=== PATIENT | male | born 2000 | race Caucasian/White ===

== ENCOUNTER 2021-09-10 22:43 | Inpatient (IN) ==
[2021-09-10] MEDS ORDERED: MULTI-VITAMIN INFUSION 10 ML, THIAMINE HCL 100 MG, FOLIC ACID 1 MG in SODIUM CHLORIDE 0... IV ONE (23:11)
[2021-09-10] MEDS ORDERED: LORazepam 2 MG/1 ML VIAL IV STA (23:11)
[2021-09-10 23:42] LABS: Basophils # (auto) 0.02 K/uL (0-0.2); Basophils % (auto) 0.2 %; Eosinophils % (auto) 1.2 %; Hematocrit (blood only) 43.9 % (42-52); Immature Granulocytes # (auto) 0.01 K/uL (0.00-0.02); Immature Granulocytes % (auto) 0.1 %; Lymphocytes # (auto) 3.66 K/uL (1.2-3.4); Lymphocytes % (auto) 45.6 %; Mean Corpuscular Hemoglobin 32.9 pg (25-34); Mean Corpuscular Hgb Conc 34.2 g/dL (32-36); Mean Corpuscular Volume 96.3 fL (80-100); Mean Platelet Volume 10.6 fL (7.4-10.4); Monocytes # (auto) 0.94 K/uL (0.11-0.59); Monocytes % (auto) 11.7 %; Neutrophils # (auto) 3.29 K/uL (1.4-6.5); Neutrophils % (auto) 41.2 %; Platelet Count 216 K/uL (130-400); RDW Coefficient of Variation 12.6 % (11.5-14.5); RDW Standard Deviation 43.9 fL (36.4-46.3); Red Blood Count 4.56 M/uL (4.7-6.1); White Blood Count 8.02 K/uL (4.8-10.8)
[2021-09-11] LABS: Appearance Urine Clear (Clear); Bilirubin Urine Negative (Negative); Blood Urine Negative (Negative); Color Urine Yellow; Glucose Urine UA Negative (Negative); Ketones Urine Negative (Negative); Leukocyte Esterase Urine Negative (Negative); Nitrite Urine Negative (Negative); Protein Urine Negative (Negative); Specific Gravity Urine 1.002 (1.000-1.030); Urobilinogen Urine Negative (Negative)
[2021-09-11 00:05] LABS: Partial Thromboplastin Ratio 0.9; Partial Thromboplastin Time 25.9 Seconds (21.0-31.0); Prothrombin Time 10.7 Seconds (9.0-12.0)
[2021-09-11 00:12] LABS: Troponin I High Sensitivity 3.4 pg/ml (0-20)
[2021-09-11 00:20] LABS: Albumin Level 4.6 gm/dl (3.4-5.0); BUN Creatinine Ratio 10.1 (10-20); Bilirubin,Total 0.7 mg/dl (0.2-1.0); Calcium 9.1 mg/dl (8.5-10.1); Creatinine Clr Calc Pharmacy 122.8 ml/min; Est GFR (African American) 147.7 ml/min; Est GFR (Non-African American) 127.5 ml/min; Globulin 2.3 gm/dl (2.5-4.0); Magnesium 1.6 mg/dl (1.7-2.4); Potassium 3.3 mmol/L (3.5-5.1); Total Protein 6.9 gm/dl (6.0-8.3)
[2021-09-11] MEDS ORDERED: LORazepam 2 MG/1 ML VIAL IV STA (01:43)
[2021-09-11] MEDS ORDERED: SODIUM CHLORIDE 0.9% 1000ML 1,000 ML IV SCH ×2 (01:45→06:27)
[2021-09-11 02:00] LABS: Amphetamines+Metham, Urine Neg (Neg); Barbiturates, Urine Neg (Neg); Benzodiazepine, Urine Neg (Neg); Cocaine, Urine Neg (Neg); MDMA (Ecstacy), Urine Neg (Neg); Methadone, Urine Neg (Neg); Opiate, Urine Neg (Neg); Phencyclidine, Urine Neg (Neg)
[2021-09-11] MEDS ORDERED: GABAPENTIN 1200MG ALCOHOL WITHDRAWAL LOAD PO STA (05:22)
[2021-09-11] MEDS ORDERED: GABAPENTIN 600 MG TAB PO STA (05:27)
[2021-09-11] MEDS ORDERED: LORazepam 2 MG/1 ML VIAL IV PRN ×3 (06:27)
[2021-09-11] MEDS ORDERED: GABAPENTIN 600 MG TAB PO ONE ×2 (06:27→07:00)
[2021-09-11] MEDS ORDERED: NITROGLYCERIN SL 0.4 MG/TAB TAB SL PRN (06:27)
[2021-09-11] MEDS ORDERED: ATIVAN IV ALCOHOL WITHDRAWL IV PRN (06:27)
--- NOTE | 2021-09-11 07:14 | History and Physical Report ---
DATE OF ADMISSION: 09/10/2021. CHIEF COMPLAINT: Shaking, alcoholism. HISTORY OF PRESENT ILLNESS: This is a 21-year-old male with past medical history significant for depression, ongoing alcohol abuse, smokes marijuana daily, vapes daily. Comes here because of shakiness. The patient says he is trying to cut down on alcohol and he was also recently started on Abilify. He thought the shaking would be from the Abilify, he stopped the Abilify, but his shaking is not getting better, so he came here and he responded to Ativan. His alcohol level was 249, marijuana was positive. Magnesium 1.6, potassium 3.3. The patient is currently resting comfortably, some shakiness is there. Answering appropriately. Denies any headache. No nausea, no blurred visions, no runny nose, no sore throat, no cough, no chest pain, no shortness of breath, no nausea, no abdominal pain. Normal bowel and bladder movements. Appetite is okay. Eating and drinking okay as per the patient. He says he lives with a roommate. His girlfriend is in the room and she has connected to the mother and father, they are coming to the hospital.Spoke with parents on the phone. They agree that he told them that he has a drinking problem and trying to cut back and asking for any help after he gets discharged. ALLERGIES: No known drug allergies. MEDICATIONS: The patient is on bupropion 150 mg p.o. daily, desvenlafaxine 75 mg p.o. daily. PAST MEDICAL HISTORY: As mentioned above. PAST SURGICAL HISTORY: None. FAMILY HISTORY: Significant for mother had skin cancer. SOCIAL HISTORY: Smokes. Drinks alcohol, as per the patient 6 beers daily. Smokes marijuana daily and vapes daily. REVIEW OF SYSTEMS: As per HPI. Rest of the review of systems is negative. PHYSICAL EXAMINATION: GENERAL: The patient is thin and frail, not in acute distress. VITAL SIGNS: Temperature 36.5, pulse 77, respiratory rate 20, blood pressure 89/47, oxygen 96% on room air. HEENT: Pupils equal, round and reactive to light. Oral mucosa moist. NECK: No JVD, no neck masses. CARDIOVASCULAR: S1 and S2 heard. Regular rate and rhythm. No murmur, no gallop. RESPIRATORY SYSTEM: Normal AP diameter. No accessory muscle use. No wheezing, no crackles. ABDOMEN: Soft, bowel sounds present, nontender, no distention. CENTRAL NERVOUS SYSTEM: Cranial nerves II through XII are grossly intact, nonfocal. EXTREMITIES: No edema, no erythema. LABORATORY DATA: WBC 8, hemoglobin 15, hematocrit 43.9, platelets 216. PT 10.7, INR 1, APTT 25.9. Sodium 138, potassium 3.3, chloride 101, bicarbonate 23, BUN 8, creatinine 0.7, serum glucose 119, calcium 9.1, magnesium 1.6, total bilirubin 0.7, AST 25, ALT 16, alkaline phosphatase 50, total creatine kinase 79. Troponin I high sensitivity 3.4. Lipase 12. TSH 0.6. Urinalysis negative. Urine drug screen positive for marijuana. Ethyl alcohol 249. SARS-CoV-2 RNA negative. ASSESSMENT AND PLAN: This is a 21-year-old male who presents with shakiness, most likely secondary to alcohol withdrawal. 1. Alcohol withdrawal: Alcohol level is 250. He is trying to quit alcohol. He also smokes marijuana daily. Will do gabapentin and alcohol withdrawal protocol with IV Ativan p.r.n. Received banana bag in the ER, IV thiamine, IV folic acid. Some gentle fluids. Social service to help with outpatient rehabilitation. Consult psychiatry when the patient is stable. 2. History of depression: Continue his home medications. 3. Deep venous thrombosis prophylaxis: Heparin subcutaneously. DISPOSITION: Closely monitor in the tele floor. Level 1 full code. Expect to discharge home and follow with family doctor. Job ID: [id number] [facility]
--- NOTE | 2021-09-11 07:17 | Emergency Department Note ---
History of Present Illness General Chief complaint: Seizure Stated complaint: SEIZURE Time Seen by Provider: 09/10/21 23:01 History of Present Illness Maximum Pain Intensity: 7 This is a 21-year-old male presenting to the emergency department for evaluation of possible seizures. The patient does not have a history of seizures in the past and does have a history of mental health disease. He started Abilify about 2 weeks ago and felt like this has made him very shaky. He stopped this medication several days ago but his shakiness continues and seems to get worse. The patient admits to drinking fairly large amounts of alcohol on a daily basis the past several weeks. He is drinking not less than 8 beers a day. The patient also smokes marijuana. The patient would like to cut back on his alcohol use, and has not had a drink this evening after drinking this morning. The patient rates his discomfort a 7/10. He does not report any chest pain, chest tightness, shortness of breath, or abdominal pain. Home Medications Medication Instructions Recorded Confirmed Type bupropion HCl 150 mg 24 hr tablet, 150 mg PO DAILY 09/11/21 09/11/21 History extended release desvenlafaxine succinate 25 mg 25 mg PO DAILY 09/11/21 09/11/21 History tablet,extended release 24 hr desvenlafaxine succinate 50 mg 50 mg PO DAILY 09/11/21 09/11/21 History tablet,extended release 24 hr Allergies Allergy/AdvReac Type Severity Reaction Status Date / Time No Known Allergies Allergy Verified 03/17/19 13:41 Past Med/Surg History Medical History ADHD Alcohol use with intoxication Kidney stone Marijuana use Surgical History No significant past surgical history Family History Other No pertinent family history in first degree relatives Social History Smoking Status: Current every day smoker Tobacco Type: E-cigarettes / Vaping Hx Alcohol Use: Yes Alcohol type: beer Hx Substance Use: Yes Preferred Language: Kenyan Communication Ability: Effective Efficiency Engineer Required: No Beliefs That Will Affect Care: None Current Living Situation: Other Current Living Situation Comment: with roommate Feels Safe at Home: Yes Assistive Devices: None Review of Systems A total of 10 systems reviewed and were otherwise negative Physical Exam Vital Signs Vital Signs - 24 hr 09/10/21 22:44 09/10/21 22:55 09/10/21 23:00 Temperature 36.5 C Temperature Source Oral Pulse Rate 118 H 96 H 106 H Pulse Rate [Right Finger] Pulse Rate from SpO2 Sensor 96 H Respiratory Rate 22 18 23 Respiratory Effort / Characteristics Non-Labored Spontaneous Respiratory Depth Normal Blood Pressure 156/106 H 151/89 H Blood Pressure [Right Arm] Blood Pressure Mean 122 109 Blood Pressure Mean [Right Arm] Blood Pressure Position Sitting Pulse Oximetry 96 96 Oxygen Delivery Method Room Air Sepsis Recent Fever Within 48 Hours No Sepsis New/Unexplained Change in Mental Status N/A Sepsis Action Taken by Nursing No Action Required 09/10/21 23:15 09/10/21 23:30 09/11/21 00:00 Temperature Temperature Source Pulse Rate 86 82 Pulse Rate [Right Finger] Pulse Rate from SpO2 Sensor 86 82 Respiratory Rate 23 19 Respiratory Effort / Characteristics Respiratory Depth Blood Pressure 90/44 L Blood Pressure [Right Arm] Blood Pressure Mean 59 Blood Pressure Mean [Right Arm] Blood Pressure Position Pulse Oximetry 96 95 95 Oxygen Delivery Method Room Air Sepsis Recent Fever Within 48 Hours Sepsis New/Unexplained Change in Mental Status Sepsis Action Taken by Nursing 09/11/21 00:30 09/11/21 01:00 09/11/21 01:30 Temperature Temperature Source Pulse Rate 64 66 66 Pulse Rate [Right Finger] Pulse Rate from SpO2 Sensor 64 65 66 Respiratory Rate 16 16 21 Respiratory Effort / Characteristics Respiratory Depth Blood Pressure 87/37 L Blood Pressure [Right Arm] Blood Pressure Mean 53 Blood Pressure Mean [Right Arm] Blood Pressure Position Pulse Oximetry 94 94 95 Oxygen Delivery Method Sepsis Recent Fever Within 48 Hours Sepsis New/Unexplained Change in Mental Status Sepsis Action Taken by Nursing 09/11/21 01:44 09/11/21 01:50 09/11/21 02:00 Temperature Temperature Source Pulse Rate 150 H 81 Pulse Rate [Right Finger] 119 H Pulse Rate from SpO2 Sensor 150 H 83 Respiratory Rate 28 H 29 H 18 Respiratory Effort / Characteristics Respiratory Depth Blood Pressure 136/94 88/40 L Blood Pressure [Right Arm] 136/94 Blood Pressure Mean 108 56 Blood Pressure Mean [Right Arm] 108 Blood Pressure Position Pulse Oximetry 98 97 95 Oxygen Delivery Method Sepsis Recent Fever Within 48 Hours Sepsis New/Unexplained Change in Mental Status Sepsis Action Taken by Nursing 09/11/21 02:30 09/11/21 03:00 09/11/21 03:30 Temperature Temperature Source Pulse Rate 72 71 70 Pulse Rate [Right Finger] Pulse Rate from SpO2 Sensor 71 69 69 Respiratory Rate 19 18 19 Respiratory Effort / Characteristics Respiratory Depth Blood Pressure 85/45 L Blood Pressure [Right Arm] Blood Pressure Mean 58 Blood Pressure Mean [Right Arm] Blood Pressure Position Pulse Oximetry 94 95 95 Oxygen Delivery Method Sepsis Recent Fever Within 48 Hours Sepsis New/Unexplained Change in Mental Status Sepsis Action Taken by Nursing 09/11/21 03:49 09/11/21 04:00 09/11/21 04:30 Temperature Temperature Source Pulse Rate 97 H 70 62 Pulse Rate [Right Finger] Pulse Rate from SpO2 Sensor 91 H 73 62 Respiratory Rate 20 19 17 Respiratory Effort / Characteristics Respiratory Depth Blood Pressure 101/49 L 89/47 L Blood Pressure [Right Arm] Blood Pressure Mean 66 61 Blood Pressure Mean [Right Arm] Blood Pressure Position Pulse Oximetry 96 94 94 Oxygen Delivery Method Sepsis Recent Fever Within 48 Hours Sepsis New/Unexplained Change in Mental Status Sepsis Action Taken by Nursing 09/11/21 05:00 Temperature Temperature Source Pulse Rate 77 Pulse Rate [Right Finger] Pulse Rate from SpO2 Sensor 76 Respiratory Rate 20 Respiratory Effort / Characteristics Respiratory Depth Blood Pressure Blood Pressure [Right Arm] Blood Pressure Mean Blood Pressure Mean [Right Arm] Blood Pressure Position Pulse Oximetry 96 Oxygen Delivery Method Sepsis Recent Fever Within 48 Hours Sepsis New/Unexplained Change in Mental Status Sepsis Action Taken by Nursing VITALS: Vitals are noted on the nurse's note and reviewed by myself. Vital sig ns with tachycardia. GENERAL: Well-developed, well-nourished, white male, who is tremulous and sun ing on presentation. HEAD: Normocephalic atraumatic. MOUTH: Mucous membranes moist. Tonsils are not enlarged. Pharynx without erythema, blood, or exudate. Uvula midline. Airway patent. NECK: Supple without nuchal rigidity. No lymphadenopathy. No thyromegaly. Cervical spine is nontender. HEART: Tachycardic rate with regular rhythm LUNGS: Clear to auscultation bilaterally without wheezes, rales or rhonchi. No retractions or accessory muscle use. ABDOMEN: Positive normal bowel sounds x 4. Soft, nontender, without masses or organomegaly. No guarding or rebound tenderness. MUSCULOSKELETAL: No muscle atrophy, erythema, or edema noted. Full range of motion in all extremities. NEURO: Patient was alert and oriented to person place and time. CN II through XII grossly intact. Nonspecific shaking to the arms and legs bilateral is identified. GCS 15. Course Administered Medications Discontinued Medications Gabapentin (Gabapentin 600 Mg Tab) 600 mg PO ONE STA Stop: 09/11/21 05:28 Last Admin: 09/11/21 05:44 Dose: 600 mg Documented by: [id number] Multivitamins 10 ml/ Thiamine HCl 100 mg/ Folic Acid 1 mg/Sodium Chloride 1,011.2 mls @ 1,011.2 mls/hr IV .Q1H ONE Stop: 09/11/21 00:10 Last Infusion: 09/11/21 01:00 Dose: 0 mls/hr Documented by: [id number] Admin: 09/10/21 23:58 Dose: 1,011.2 mls/hr Documented by: [id number] Sodium Chloride (Nss 1000ml) 1,000 mls @ 999 mls/hr IV .Q1H1M NEEMA Stop: 09/11/21 02:45 Last Infusion: 09/11/21 02:51 Dose: 0 mls/hr Documented by: [id number] Admin: 09/11/21 01:50 Dose: 999 mls/hr Documented by: [id number] Lorazepam (Lorazepam 2 Mg/1 Ml Vial) 1 mg IV NOW STA Stop: 09/10/21 23:12 Last Admin: 09/10/21 23:21 Dose: 1 mg Documented by: [id number] Lorazepam (Lorazepam 2 Mg/1 Ml Vial) 1 mg IV NOW STA Stop: 09/11/21 01:44 Last Admin: 09/11/21 01:50 Dose: 1 mg Documented by: [id number] Medical Decision Making Differential Diagnosis Differential diagnosis: Etiologies such as alcohol intoxication, toxicological, infection, hypoglycemia, electrolyte abnormalities, cardiac sources, intracerebral event, neurologic, as well as others were entertained. Laboratory Data Result diagrams: 09/10/21 23:15 09/10/21 23:15 Lab Results 09/10/21 09/10/21 09/10/21 Range/Units 23:15 23:15 23:15 WBC 8.02 (4.8-10.8) K/uL RBC 4.56 L (4.7-6.1) M/uL Hgb 15.0 (14.0-18.0) g/dL Hct 43.9 (42-52) % MCV 96.3 (80-100) fL MCH 32.9 (25-34) pg MCHC 34.2 (32-36) g/dL RDW Std Deviation 43.9 (36.4-46.3) fL RDW Coeff of Corie 12.6 (11.5-14.5) % Plt Count 216 (130-400) K/uL MPV 10.6 H (7.4-10.4) fL Immature Gran % (Auto) 0.1 % Neut % (Auto) 41.2 % Lymph % (Auto) 45.6 % [place] % (Auto) 11.7 % Eos % (Auto) 1.2 % Baso % (Auto) 0.2 % Neut # (Auto) 3.29 (1.4-6.5) K/uL Lymph # (Auto) 3.66 H (1.2-3.4) K/uL [place] # (Auto) 0.94 H (0.11-0.59) K/uL Eos # (Auto) 0.10 (0-0.5) K/uL Baso # (Auto) 0.02 (0-0.2) K/uL Immature Gran # (Auto) 0.01 (0.00-0.02) K/uL PT 10.7 (9.0-12.0) Seconds INR 1.0 (0.9-1.1) APTT 25.9 (21.0-31.0) Seconds PTT Ratio 0.9 Sodium 138 (136-145) mmol/L Potassium 3.3 L (3.5-5.1) mmol/L Chloride 101 (98-107) mmol/L Carbon Dioxide 23 (21-32) mmol/L Anion Gap 14 H (3-11) BUN 8 (6-23) mg/dl Creatinine 0.79 (0.6-1.4) mg/dl Est Cr Clr Drug Dosing 122.8 ml/min Est GFR ( Amer) 147.7 ml/min Est GFR (Non-Af Amer) 127.5 ml/min BUN/Creatinine Ratio 10.1 (10-20) Glucose 119 H (70-99(Fasting)) mg/dl Calcium 9.1 (8.5-10.1) mg/dl Magnesium 1.6 L (1.7-2.4) mg/dl Total Bilirubin 0.7 (0.2-1.0) mg/dl AST 25 (13-39) U/L ALT 16 (7-52) U/L Alkaline Phosphatase 50 (34-104) U/L Total Creatine Kinase 79 (30-223) U/L Troponin I High Sens 3.4 (0-20) pg/ml Total Protein 6.9 (6.0-8.3) gm/dl Albumin 4.6 (3.4-5.0) gm/dl Globulin 2.3 L (2.5-4.0) gm/dl Albumin/Globulin Ratio 2.0 (0.9-2) Lipase 12 (11-82) U/L TSH (0.300-4.500) uIu/ml Urine Color Urine Appearance (Clear) Urine pH (4.5-7.5) Ur Specific [place] (1.000-1.030) Urine Protein (Negative) Urine Glucose (UA) (Negative) Urine Ketones (Negative) Urine Blood (Negative) Urine Nitrite (Negative) Urine Bilirubin (Negative) Urine Urobilinogen (Negative) Ur Leukocyte Esterase (Negative) Urine Opiates Screen (Neg) Ur Methadone, Qual (Neg) Urine Barbiturates (Neg) Ur Phencyclidine (PCP) (Neg) U Amphetamin/Meth Scrn (Neg) MDMA (Ecstasy) Screen (Neg) U Benzodiazepines Scrn (Neg) Ur Cocaine Metabolite (Neg) U Marijuana (THC) Screen (Neg) Ethyl Alcohol mg/dL (<10.0) mg/dl SARS-CoV-2, RNA, NAAT (NEGATIVE) 09/10/21 09/10/21 09/10/21 Range/Units 23:15 23:15 23:15 WBC (4.8-10.8) K/uL RBC (4.7-6.1) M/uL Hgb (14.0-18.0) g/dL Hct (42-52) % MCV (80-100) fL MCH (25-34) pg MCHC (32-36) g/dL RDW Std Deviation (36.4-46.3) fL RDW Coeff of Corie (11.5-14.5) % Plt Count (130-400) K/uL MPV (7.4-10.4) fL Immature Gran % (Auto) % Neut % (Auto) % Lymph % (Auto) % [place] % (Auto) % Eos % (Auto) % Baso % (Auto) % Neut # (Auto) (1.4-6.5) K/uL Lymph # (Auto) (1.2-3.4) K/uL [place] # (Auto) (0.11-0.59) K/uL Eos # (Auto) (0-0.5) K/uL Baso # (Auto) (0-0.2) K/uL Immature Gran # (Auto) (0.00-0.02) K/uL PT (9.0-12.0) Seconds INR (0.9-1.1) APTT (21.0-31.0) Seconds PTT Ratio Sodium (136-145) mmol/L Potassium (3.5-5.1) mmol/L Chloride (98-107) mmol/L Carbon Dioxide (21-32) mmol/L Anion Gap (3-11) BUN (6-23) mg/dl Creatinine (0.6-1.4) mg/dl Est Cr Clr Drug Dosing ml/min Est GFR ( Amer) ml/min Est GFR (Non-Af Amer) ml/min BUN/Creatinine Ratio (10-20) Glucose (70-99(Fasting)) mg/dl Calcium (8.5-10.1) mg/dl Magnesium (1.7-2.4) mg/dl Total Bilirubin (0.2-1.0) mg/dl AST (13-39) U/L ALT (7-52) U/L Alkaline Phosphatase (34-104) U/L Total Creatine Kinase (30-223) U/L Troponin I High Sens (0-20) pg/ml Total Protein (6.0-8.3) gm/dl Albumin (3.4-5.0) gm/dl Globulin (2.5-4.0) gm/dl Albumin/Globulin Ratio (0.9-2) Lipase (11-82) U/L TSH 0.685 (0.300-4.500) uIu/ml Urine Color Yellow Urine Appearance Clear (Clear) Urine pH 7.0 (4.5-7.5) Ur Specific [place] 1.002 (1.000-1.030) Urine Protein Negative (Negative) Urine Glucose (UA) Negative (Negative) Urine Ketones Negative (Negative) Urine Blood Negative (Negative) Urine Nitrite Negative (Negative) Urine Bilirubin Negative (Negative) Urine Urobilinogen Negative (Negative) Ur Leukocyte Esterase Negative (Negative) Urine Opiates Screen (Neg) Ur Methadone, Qual (Neg) Urine Barbiturates (Neg) Ur Phencyclidine (PCP) (Neg) U Amphetamin/Meth Scrn (Neg) MDMA (Ecstasy) Screen (Neg) U Benzodiazepines Scrn (Neg) Ur Cocaine Metabolite (Neg) U Marijuana (THC) Screen (Neg) Ethyl Alcohol mg/dL 249.8 H (<10.0) mg/dl SARS-CoV-2, RNA, NAAT (NEGATIVE) 09/10/21 09/11/21 Range/Units 23:15 03:45 WBC (4.8-10.8) K/uL RBC (4.7-6.1) M/uL Hgb (14.0-18.0) g/dL Hct (42-52) % MCV (80-100) fL MCH (25-34) pg MCHC (32-36) g/dL RDW Std Deviation (36.4-46.3) fL RDW Coeff of Corie (11.5-14.5) % Plt Count (130-400) K/uL MPV (7.4-10.4) fL Immature Gran % (Auto) % Neut % (Auto) % Lymph % (Auto) % [place] % (Auto) % Eos % (Auto) % Baso % (Auto) % Neut # (Auto) (1.4-6.5) K/uL Lymph # (Auto) (1.2-3.4) K/uL [place] # (Auto) (0.11-0.59) K/uL Eos # (Auto) (0-0.5) K/uL Baso # (Auto) (0-0.2) K/uL Immature Gran # (Auto) (0.00-0.02) K/uL PT (9.0-12.0) Seconds INR (0.9-1.1) APTT (21.0-31.0) Seconds PTT Ratio Sodium (136-145) mmol/L Potassium (3.5-5.1) mmol/L Chloride (98-107) mmol/L Carbon Dioxide (21-32) mmol/L Anion Gap (3-11) BUN (6-23) mg/dl Creatinine (0.6-1.4) mg/dl Est Cr Clr Drug Dosing ml/min Est GFR ( Amer) ml/min Est GFR (Non-Af Amer) ml/min BUN/Creatinine Ratio (10-20) Glucose (70-99(Fasting)) mg/dl Calcium (8.5-10.1) mg/dl Magnesium (1.7-2.4) mg/dl Total Bilirubin (0.2-1.0) mg/dl AST (13-39) U/L ALT (7-52) U/L Alkaline Phosphatase (34-104) U/L Total Creatine Kinase (30-223) U/L Troponin I High Sens (0-20) pg/ml Total Protein (6.0-8.3) gm/dl Albumin (3.4-5.0) gm/dl Globulin (2.5-4.0) gm/dl Albumin/Globulin Ratio (0.9-2) Lipase (11-82) U/L TSH (0.300-4.500) uIu/ml Urine Color Urine Appearance (Clear) Urine pH (4.5-7.5) Ur Specific [place] (1.000-1.030) Urine Protein (Negative) Urine Glucose (UA) (Negative) Urine Ketones (Negative) Urine Blood (Negative) Urine Nitrite (Negative) Urine Bilirubin (Negative) Urine Urobilinogen (Negative) Ur Leukocyte Esterase (Negative) Urine Opiates Screen Neg (Neg) Ur Methadone, Qual Neg (Neg) Urine Barbiturates Neg (Neg) Ur Phencyclidine (PCP) Neg (Neg) U Amphetamin/Meth Scrn Neg (Neg) MDMA (Ecstasy) Screen Neg (Neg) U Benzodiazepines Scrn Neg (Neg) Ur Cocaine Metabolite Neg (Neg) U Marijuana (THC) Screen Pos H (Neg) Ethyl Alcohol mg/dL (<10.0) mg/dl SARS-CoV-2, RNA, NAAT NEGATIVE (NEGATIVE) MDM Narrative Physical exam and history were performed. Nursing notes, EMR, and Medication List were personally reviewed. Patient appears to have significant shakiness and tachycardia on arrival. The patient is concern for seizures, however he is fully awake and is able to give me a full history. My concern is for alcohol withdrawal as he does admit to drinking a large amount. IV access was established and labs were obtained. He was given a banana bag and IV Ativan. An order was placed for continuous cardiac monitoring. The monitor shows a rate of 118 with sinus tachycardic rhythm. The patient's blood work was as above and reviewed. He does not have a significantly elevated white blood cell count, gross anemia, bandemia, or significant electrolyte imbalance. Glucose is 119. Troponin is negative. TSH is euthyroid. Urine is without evidence of infection. His alcohol is notably elevated at 249. He has marijuana positive. Despite being with an alcohol of 249 the patient did have return of his shakine ss and tachycardia after the initial dose of Ativan. The patient was given additional IV saline and a second dose of IV Ativan. The patient shakiness resolves very quickly with this and he is able to rest comfortably. He does have some episodic borderline hypotensive episodes with the Ativan. The patient was monitored for some time here in the ER, and he continues to require benzodiazepines to control his shakiness. I do suspect that he is withdrawing. The case was discussed with the on-call hospitalist who agreed to evaluate the patient here in the ER. Please see their dictation for further patient course, plan, disposition. The chart was completed utilizing [employer] Speech Voice Recognition Software. Grammatical errors, random word insertions, pronoun errors, and incomplete sente nces are an occasional consequence of this system due to software limitations, ambient noise, and hardware issues. Any formal questions or concerns about the content, text, or information contained within the body of this dictation should be directly addressed to the provider for clarification. . Impression & Plan Alcohol withdrawal, Marijuana use, Shakiness Discharge Plan Visit Data Chief Complaint: Seizure Stated Complaint: SEIZURE ED Provider: Berny Higginbotham ED Midlevel Provider: Larry Valadez Discharge Problem: Alcohol withdrawal, Marijuana use, Shakiness Patient Disposition: Admitted As Inpatient Discharge Instructions Interventions: ED Discharge Assessment Last Done: 09/11/21 06:34
[2021-09-11] MEDS: HEPARIN SOD 5,000 UNIT/0.5 ML VIAL SQ SCH ×2 (07:53→14:16)
[2021-09-11] MEDS: MAGNESIUM SULFATE / D5W 1 GM/100 ML BAG IV SCH ×2 (08:25→12:14)
[2021-09-11] MEDS ORDERED: Nursing to Pharmacy Communication SCH (08:45)
[2021-09-11] MEDS ORDERED: FOLIC ACID 1 MG in SYRINGE 9.8 ML IV SCH (09:00)
[2021-09-11] MEDS ORDERED: THIAMINE HCL 100 MG in SYRINGE 9 ML IV SCH (09:00)
[2021-09-11] MEDS ORDERED: buPROPion XL 150 MG TABCR PO SCH ×2 (09:00→15:00)
[2021-09-11] MEDS: GABAPENTIN 600 MG TAB PO SCH ×2 (12:54→19:10)
--- NOTE | 2021-09-11 14:21 | Psychiatric Consultation ---
Date of Consultation September 11, 2021 Impression / Recommendations Impression This is a 21 yo with a history of ADHD, depression,anxiety, and alcohol use admitted medically. Diagnostically consistent with alcohol use disorder as well as unspecified depression and anxiety likely a combination of substance-induced as well as MDD and MARIBEL. Shakiness could certainly be from alcohol withdrawal likely complicated by some potential akathisia or tremor from ability and dopaminergic/NE activation from Wellbutrin and Pristiq. Marijuana may also be contributing. May benefit from propranolol for anxiety and tremor if anxiety/akathisia component and if blood pressure can tolerate. At this point ri sk of harm to self and others is slightly increased due to substance use with substance use treatment being the most significant modifiable risk factor to reduce acute and chronic risk. Acute risk is low given denial of SI with no hx prior attempts but with depression, anxiety, substance use. He is not interested in inpatient psychiatric treatment at this time and does not meet involuntary criteria. They are not interested in residential treatment at this time but are agreeable to outpatient services to help with substance use and reviewed future option for medication assisted treatment if he decides he wants to try this in the future. -Psychiatric liason will confirm his next outpt psychiatric appointment at [facility] and provide resources for local substance use services (discussed [facility], he's unsure how long he is going to remain locally). -Consider propranolol 10mg BID for anxiety/tremor if blood pressure stable -Continue AWSS as well as thiamine and folic acid -Consider starting naltrexone 50mg qd for alcohol use disorder in the future -Continue Wellbutrin, ok to hold Pristiq as non-formulary unless family can bring in home medication supply; agree with discontinuation of abilify -Patient is not an imminent danger to self or others and does not meet criteria for involuntary psychiatric commitment (1) Alcohol withdrawal: (2) Alcohol use disorder, mild, abuse: (3) MDD (major depressive disorder), recurrent episode, moderate: (4) MARIBEL (generalized anxiety disorder): see above Risk Factors Assessment Male: Yes : Yes Do You Have Access To A Gun?: No Psych History Identifying Data 21 yo man with history of ADHD, depression and anxiety admitted medically for alcohol withdrawal. Psychiatry was consulted for recommendations regarding depression and alcohol use. Chief Complaint "I'm ok". History of Present Illness describes a long history of depression that fluctuates. He has an outpatient psychiatrist and therapist and recently added abilify for mood augmentation but he then developed increased shakiness/tremors. This further exacerbated his anxiety as he worried about being seen shaking while in public. Shakiness sometimes associated with anxiety sometimes without. Also within the last few weeks his alcohol use has been increasing to the point of drinking 8 beers per day over the last two weeks. No history of blackouts/DUIs/other legal consequences from this. Today endorses depressive symptoms, 18 on PHQ-9 with low mood, low energy, decreased appetite, and trouble concentrating as highest symptom burden. He denies any current nor recent thoughts of suicide and Q9 was 0 on PHQ-9. Attempted self-harm via burning his hand last week for the first time but did not like how this felt and denies any further episodes of self-harm nor any urges. He can speak to future-oriented goals and reasons to live including family and friends. Reviewed that he's been on Pristiq for the last year and Wellbutrin for last 5 years. Tremors/shakiness didn't start until abilify was added about two weeks ago and has not resolved even with stopping abilify about 3 days ago. For further history see psych liason note. Past Psychiatric History Previous Psych Admissions: once in 2014 at [facility] Do You Have Access To A Gun?: No History of Previous Suicide Attempt: No Past Medication Trials: tried SSRIs in the past Allergies Allergy/AdvReac Type Severity Reaction Status Date / Time No Known Allergies Allergy Verified 03/17/19 13:41 Home Medications Medication Instructions Recorded Confirmed Type bupropion HCl 150 mg 24 hr tablet, 150 mg PO DAILY 09/11/21 09/11/21 History extended release desvenlafaxine succinate 25 mg 25 mg PO DAILY 09/11/21 09/11/21 History tablet,extended release 24 hr desvenlafaxine succinate 50 mg 50 mg PO DAILY 09/11/21 09/11/21 History tablet,extended release 24 hr Family History depression and anxiety Substance Abuse History see HPI-alcohol use, marijuana use Personal History Living Arrangements: Apartment Childhood: Withdrew from [facility] this ster due to depression, planning to return home with family for summer and possibly return to campus for fall. Beliefs That Will Affect Care: None History of Legal Problems: none Patient History Medical History ADHD Alcohol use with intoxication Kidney stone Marijuana use Surgical History No significant past surgical history Family History Other No pertinent family history in first degree relatives Social History Smoking Status: Current every day smoker Tobacco Type: E-cigarettes / Vaping Hx Alcohol Use: Yes Alcohol type: beer Hx Substance Use: Yes Preferred Language: Russian Communication Ability: Effective Mobile Therapist Required: No Beliefs That Will Affect Care: None Current Living Situation: Other Current Living Situation Comment: with roommate Feels Safe at Home: Yes Assistive Devices: None Physical Exam Psychiatric: Orientation: alert and oriented x 3 Apperance: appropriately dressed and appropriately groomed Eye Contact: good eye contact Motor Behavior: + abnormal motor movements (a few episodes of tremulousness noted ) Speech: normal rate/rhythm/volume of speech Affect: + depressed affect Mood: + depressed mood and + anxious mood Thought Process: goal directed thought process Thought Content: reality based without delusions Suicidal Thoughts: denies suicidal thoughts Homicidal Thoughts: denies homicidal thoughts Hallucinations: no auditory hallucinations and no visual hallucinations Cognition: recent memory grossly intact, remote memory grossly intact, attention grossly intact and language grossly intact Estimated Intelligence: consistent with education level Insight: + fair insight Judgement: + fair judgement Vital Signs (Past 24 Hours): Last Vital Signs Temp 37.2 C 09/11/21 11:11 Pulse 73 09/11/21 11:11 Resp 14 09/11/21 11:11 BP 115/58 L 09/11/21 11:11 Pulse Ox 97 09/11/21 11:11 Review of Systems All systems reviewed & are unremarkable except as noted in HPI & below Results & Data (PSY) Medications Administered Gabapentin (Gabapentin 600 Mg Tab) 600 mg PO Q6H NEEMA Stop: 09/11/21 18:01 Last Admin: 09/11/21 12:54 Dose: 600 mg Documented by: [id number] Heparin Sodium (Porcine) (Heparin Sod 5,000 Unit/0.5 Ml Vial) 5,000 units SQ Q8 NEEMA Stop: 10/11/21 06:44 Last Admin: 09/11/21 14:16 Dose: Not Given Documented by: [id number] Admin: 09/11/21 07:53 Dose: 5,000 units Documented by: [id number] Thiamine HCl 100 mg/ Syringe 10 mls @ 2 mls/min IV QAM NEEMA Stop: 10/11/21 08:59 Last Admin: 09/11/21 08:21 Dose: 2 mls/min Documented by: [id number] Folic Acid 1 mg/ Syringe 10 mls @ 5 mls/min IV QAM NEEMA Stop: 10/11/21 08:59 Last Admin: 09/11/21 08:21 Dose: 5 mls/min Documented by: [id number] Sodium Chloride (Nss 1000ml) 1,000 mls @ 100 mls/hr IV .Q10H NEEMA Stop: 09/11/21 16:26 Last Infusion: 09/11/21 08:25 Dose: 100 mls/hr Documented by: [id number] Admin: 09/11/21 07:53 Dose: 100 mls/hr Documented by: [id number] Lorazepam (Lorazepam 2 Mg/1 Ml Vial) 1 mg IV UD PRN; Protocol PRN Reason: EtOH Withdrawl AWSS Score 6,7 Stop: 10/11/21 06:26 Last Admin: 09/11/21 08:30 Dose: 1 mg Documented by: [id number] Miscellaneous (Desvenlafaxine Succinate 50 Mg Tablet Extended Release 24 Hr ~ Order Awaiting Action) 1 ea N/A QS NEEMA Stop: 10/11/21 07:59 Last Admin: 09/11/21 12:13 Dose: Not Given Documented by: [id number] Miscellaneous (Desvenlafaxine Succinate 25 Mg Tablet Extended Release 24 Hr ~ Order Awaiting Action) 1 ea N/A QS NEEMA Stop: 10/11/21 07:59 Last Admin: 09/11/21 12:12 Dose: Not Given Documented by: [id number] Coding Level of Care Code 36754 Inpt Consult Level 3 Diagnoses Alcohol withdrawal F10.239 Alcohol use disorder, mild, abuse F10.10 MDD (major depressive disorder), recurrent episode, moderate F33.1 MARIBEL (generalized anxiety disorder) F41.1 Time Spent (min) 30
--- NOTE | 2021-09-11 14:21 | Communication Note ---
Date of Service: September 11, 2021 Seen and examined at bedside. Admitted earlier today for shakiness. Please review H&P for details. States he has some stressors at home causing anxiety for which he sees a therapist and psychiatrist. 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 He has medical marijuana for the past 1.5 years but denies any recreational drug abuse. He has been drinking about 8 beers a day for the past 2 months. He was started on abilify a week ago, a week after which he noticed shakiness and for which he came to the ED. He stopped his abilify yesterday. His alcohol level was high and he was started on gabapentin taper. He was also given iv ativan today and he states ativan helped. He was seen by psychiatry who recommended wellbutrin and pristiq, and adding propanolol 10 mg bid prn for tremors /shakiness if BP can handle. He does not want inpatient alcohol rehab- psych to provide the OP resources. Psych cleared for discharge once medically stable as no suicidal ideation; and recommended f/u with psychiatry.
[2021-09-11] MEDS ORDERED: PROPRANOLOL HCL 10 MG TAB PO PRN (14:30)
[2021-09-11] MEDS ORDERED: POTASSIUM CHLORIDE CRTAB 20 MEQ TABCR PO ONE (15:33)
[2021-09-11] MEDS: PROPRANOLOL HCL 10 MG TAB PO SCH (21:06)
[2021-09-12 06:15] LABS: Hematocrit (blood only) 40.5 % (42-52); Hemoglobin 13.4 g/dL (14.0-18.0); Mean Corpuscular Hemoglobin 32.1 pg (25-34); Mean Corpuscular Hgb Conc 33.1 g/dL (32-36); Mean Corpuscular Volume 97.1 fL (80-100); Platelet Count 192 K/uL (130-400); RDW Coefficient of Variation 12.8 % (11.5-14.5); RDW Standard Deviation 45.4 fL (36.4-46.3); Red Blood Count 4.17 M/uL (4.7-6.1); White Blood Count 5.73 K/uL (4.8-10.8)
[2021-09-12] MEDS: GABAPENTIN 600 MG TAB PO SCH ×2 (06:29→13:07)
[2021-09-12 06:35] LABS: Calcium 8.9 mg/dl (8.5-10.1); Creatinine Clr Calc Pharmacy 123.8 ml/min; Est GFR (African American) 148.5 ml/min; Est GFR (Non-African American) 128.1 ml/min; Magnesium 1.8 mg/dl (1.7-2.4); Potassium 3.7 mmol/L (3.5-5.1)
[2021-09-12 06:59] LABS: Basophils # (auto) 0.02 K/uL (0-0.2); Basophils % (auto) 0.3 %; Eosinophils # (auto) 0.15 K/uL (0-0.5); Eosinophils % (auto) 2.6 %; Lymphocytes # (auto) 3.27 K/uL (1.2-3.4); Lymphocytes % (auto) 57.1 %; Monocytes # (auto) 0.51 K/uL (0.11-0.59); Monocytes % (auto) 8.9 %; Neutrophils # (auto) 1.78 K/uL (1.4-6.5); Neutrophils % (auto) 31.1 %
[2021-09-12] MEDS ORDERED: THIAMINE HCL 100 MG TAB PO SCH (09:00)
[2021-09-12] MEDS ORDERED: FOLIC ACID 1 MG TAB PO SCH (09:00)
[2021-09-12] MEDS: PROPRANOLOL HCL 10 MG TAB PO SCH (09:40)
[2021-09-12] MEDS ORDERED: CYANOCOBALAMIN 1000 MCG/ML VIAL IM STA (10:21)
--- NOTE | 2021-09-12 10:40 | Hospitalist Progress Note ---
Date of Service September 12, 2021 Assessment & Plan (1) Alcohol withdrawal: (2) Marijuana use: (3) Shakiness: (4) MDD (major depressive disorder), recurrent episode, moderate: (5) MARIBEL (generalized anxiety disorder): Plan: 21M presented with shakiness/tremors alcohol level was 250. Treatted for alcohol withdrawal and seen by psychiatry for Depression/anxiety and recommended to add propronolol 10mg prn. patinet doing fine and wants to be discharged. Alcohol withdrawal drinking about 8beers a day seems for last 2 months alcohol level was 250. started on gabapentin protocol and ativan prn Received banana bag on thiamin and folic acid Doing ok recommend alcohol cessation followup out patient rehab Tremors mostly from alcohol withdrawal probably psych meds playing role as per psychiatry and recommends propranolol 10mg po bid prn followup . Depression/anxiety continue home meds followup with psychiatry Vitamin b12 Deficiency level 146 will give vitamin b12 shot d/c on po vitamin b12 1000mcg po daily needs to followup with PCP for further treatment Plan for d/c home to today with close followup with PCP and Psychiatry and alcohol rehab. Admission and Anticipated Discharge Date Admission Date: September 11, 2021 Subjective Resting comfortably shakinees improved wants to go home slept fine ate good breakfast denies chest p[ain or sob no nausea no s headache no cough afebrile no abdominal pain Review of Systems Review of Systems: All systems reviewed & are unremarkable except as noted in Subjective Physical Exam Eyes: PERRL, conjunctivae normal, anicteric sclerae ENMT: external ear and nose normal, oropharynx normal Neck: trachea midline, no thyromegaly Respiratory: normal respiratory effort, lungs clear to auscultation Cardiovascular: RRR, no murmur, no edema Gastrointestinal (Abdomen): normal bowel sounds, soft, nontender, no hepatosplenomegaly Neurologic: PERRL, EOMI, accommodation nl, no face palsy, no dysarthria Psychiatric: A+Ox3, euthymic affect Results & Data Results & Data ([facility]) Vital Signs (Past 12 Hours) Vital Signs Temp Pulse Pulse Resp BP Pulse Ox 09/12/21 08:00 36.7 C 65 20 129/73 97 09/12/21 07:33 50 L 09/12/21 03:40 36.9 C 57 L 18 107/69 98 09/12/21 00:00 36.8 C 75 58 L 14 111/71 97
--- NOTE | 2021-09-12 15:30 | Electrocardiogram Report ---
Test Reason : Blood Pressure : / mmHG Vent. Rate : 092 BPM Atrial Rate : 092 BPM P-R Int : 146 ms QRS Dur : 084 ms QT Int : 328 ms P-R-T Axes : 073 106 071 degrees QTc Int : 405 ms Poor data quality, interpretation may be adversely affected Normal sinus rhythm Rightward axis Borderline ECG No previous ECGs available Confirmed by Ja Oreilly ([id number]) on 09/12/2021 3:29:56 PM Referred By: REFERRED SELF Confirmed By:Ja Oreilly
--- NOTE | 2021-09-12 17:50 | Discharge Summary ---
Date of Service September 12, 2021 Admission HPI Per Admitting Provider This is a 21-year-old male with past medical history significant for depression, ongoing alcohol abuse, smokes marijuana daily, vapes daily. Comes here because of shakiness. The patient says he is trying to cut down on alcohol and he was also recently started on Abilify. He thought the shaking would be from the Abilify, he stopped the Abilify, but his shaking is not getting better, so he came here and he responded to Ativan. His alcohol level was 249, marijuana was positive. Magnesium 1.6, potassium 3.3. The patient is currently resting comfortably, some shakiness is there. Answering appropriately. Denies any headache. No nausea, no blurred visions, no runny nose, no sore throat, no cough, no chest pain, no shortness of breath, no nausea, no abdominal pain. Normal bowel and bladder movements. Appetite is okay. Eating and drinking okay as per the patient. He says he lives with a roommate. His girlfriend is in the room and she has connected to the mother and father, they are coming to the hospital.Spoke with parents on the phone. They agree that he told them that he has a drinking problem and trying to cut back and asking for any help after he gets discharged. Admission Exam Per Admitting Provider GENERAL: The patient is thin and frail, not in acute distress. VITAL SIGNS: Temperature 36.5, pulse 77, respiratory rate 20, blood pressure 89/47, oxygen 96% on room air. HEENT: Pupils equal, round and reactive to light. Oral mucosa moist. NECK: No JVD, no neck masses. CARDIOVASCULAR: S1 and S2 heard. Regular rate and rhythm. No murmur, no gallop. RESPIRATORY SYSTEM: Normal AP diameter. No accessory muscle use. No wheezing, no crackles. ABDOMEN: Soft, bowel sounds present, nontender, no distention. CENTRAL NERVOUS SYSTEM: Cranial nerves II through XII are grossly intact, nonfocal. EXTREMITIES: No edema, no erythema. Principal Diagnosis Alcohol withdrawal Discharge Data Allergies Allergy/AdvReac Type Severity Reaction Status Date / Time No Known Allergies Allergy Verified 03/17/19 13:41 Consultations 09/11/21 04:08 ED Decision to Admit Stat 09/11/21 06:27 Consult Psychiatry Routine Hospital Course (1) Alcohol withdrawal: (2) Marijuana use: (3) Shakiness: (4) MDD (major depressive disorder), recurrent episode, moderate: (5) MARIBEL (generalized anxiety disorder): 21M presented with shakiness/tremors alcohol level was 250. Treatted for alcohol withdrawal and seen by psychiatry for Depression/anxiety and recommended to add propronolol 10mg prn. patinet doing fine and wants to be discharged. Alcohol withdrawal drinking about 8beers a day seems for last 2 months alcohol level was 250. started on gabapentin protocol and ativan prn Received banana bag on thiamin and folic acid Doing ok recommend alcohol cessation followup out patient rehab Tremors mostly from alcohol withdrawal probably psych meds playing role as per psychiatry and recommends propranolol 10mg po bid prn followup . Depression/anxiety continue home meds followup with psychiatry Vitamin b12 Deficiency level 146 will give vitamin b12 shot d/c on po vitamin b12 1000mcg po daily needs to followup with PCP for further treatment Plan for d/c home to today with close followup with PCP and Psychiatry and alcohol rehab. Total Time Total Time Spent Total Time Spent (In Minutes): 35minutes Discharge Plan Discharge Items Patient Disposition: Home - Self-Care Reason For Visit: SHAKING Discharge Diagnosis: alcoholism Activity: Resume your previous activity Non-emergency contact: Primary Care Provider Call non-emergency contact if: you have any medication questions, your symptoms worsen and your rectal temperature is above 100.4 Follow-up/Referrals: PCP,NO [Primary Care Provider] - Diet: Regular Addtl Attending Provider Instructions: Followup with PCP in 4-5 days Followup with Psychiatry as scheduled. Complete gabapentin taper, Strongly recommended alcohol cessation. Followup with PCP for vitamin B1 deficiency ALSO TAKE MULTIVITAMIN OTC . Pending Studies at Discharge: No Stand-Alone Forms: My [employer], Opioid Pain Management, Work/School Release, Smoking Cessation Medications and DC Order Prescriptions: New propranolol 10 mg Tablet 10 mg PO BID PRN (Reason: TREMORS) Qty: 60 RF: 0 gabapentin 600 mg Tablet 600 mg PO .TAPER Qty: 5 RF: 0 folic acid 1 mg Tablet 1 mg PO QAM Qty: 14 RF: 0 thiamine HCl (vitamin B1) 100 mg Tablet 100 mg PO QAM Qty: 14 RF: 0 cyanocobalamin (vitamin B-12) 1,000 mcg capsule 1,000 mcg PO DAILY Qty: 30 RF: 2 Continued bupropion HCl 150 mg tablet extended release 24 hr 150 mg PO DAILY RF: 0 desvenlafaxine succinate 50 mg tablet extended release 24 hr 50 mg PO DAILY RF: 0 desvenlafaxine succinate 25 mg tablet extended release 24 hr 25 mg PO DAILY RF: 0 Discharge Orders: Discharge Order (Routine); Ordered 09/12/21 Ordered By: Shun Felton/Other Patient Handouts: Online Mental Health Support Grp, Counseling for Depression, Addiction: Your Treatment Options Admission Data Admit Date/Time: 09/11/21 05:22 Attending Provider: Shun Ewing Admit Provider: Shun Ewing Primary Care Provider: PCP,NO Other Providers: Kym Huang ; Magi George ; Tawana Singleton ; Shun Ewing Other Interventions: Discharge Summary Assessment (RN) Last Done: 09/12/21 13:11
[2021-09-13 08:50] LABS: Marijuana Quant, GCMS Urine 269 ng/mL (<5)
[2021-09-13] MEDS ORDERED: GABAPENTIN 600 MG TAB PO SCH (10:00)
[2021-09-14] MEDS ORDERED: GABAPENTIN 600 MG TAB PO SCH (22:00)
== END 2021-09-12 14:15 | disposition home or self-care (01) | DRG 897 ==
LOC: ED 22:43 → 2S 09-11 05:22 → SUATTDRO 09-11 05:22 → 2S 09-11 06:34
DX: F33.1 Major depressive disorder, recurrent, moderate; Y90.8 Blood alcohol level of 240 mg/100 ml or more; F10.239 Alcohol dependence with withdrawal, unspecified; F17.290 Nicotine dependence, other tobacco product, uncomplicated; Z87.442 Personal history of urinary calculi; F12.99 Cannabis use, unspecified with unspecified cannabis-induced disorder; F90.9 Attention-deficit hyperactivity disorder, unspecified type; F41.1 Generalized anxiety disorder